=== PATIENT | male | born 1980 | race Caucasian/White ===

== ENCOUNTER 2017-01-03 13:29 | Day surgery (SDC) | payer OTHER ==
[~2017-01-03] VITALS: Ht 180.3 cm; Wt 93.0 kg
[~2017-01-03 13:29] MED LIST: ONETAB4 PO
[2017-01-03] MEDS ORDERED: ceFAZolin 2 GM/D5W 50 ML IV BAG (J0690) As Ordered ONE (13:53)
[2017-01-03] MEDS ORDERED: LR 1,000 ML IV ONE (14:00)
[2017-01-03] MEDS ORDERED: MIDAZOLAM INJ 2 MG/2 ML VIAL (J2250) As Ordered ONE (14:10)
[2017-01-03] MEDS ORDERED: fentaNYL 100 MCG/2 ML INJECTION (J3010) As Ordered ONE (14:10)
[2017-01-03] MEDS ORDERED: BUPIVACAINE/EPIN 0.25% 30 ML VIAL As Ordered ONE (14:16)
[2017-01-03] MEDS ORDERED: HYDROmorphone HCL 2 MG/ML 1ML VIAL (J1170) As Ordered ONE (15:12)
[2017-01-03] MEDS ORDERED: dexameTHASONE 4 MG/ML 1ML VIAL (J1100) As Ordered ONE (15:16)
[2017-01-03] MEDS ORDERED: ONDANSETRON 4MG/2ML VIAL (J2405) As Ordered ONE (15:16)
[2017-01-03] MEDS ORDERED: KETOROLAC 60 MG/2 ML VIAL (J1885) As Ordered ONE (15:16)
[2017-01-03] MEDS ORDERED: GLYCOPYRROLATE INJ 0.2 MG/ML 2 ML VIAL As Ordered ONE (15:28)
[2017-01-03] MEDS ORDERED: NEOSTIGMINE 1MG/ML 5 ML SYRINGE (J2710) As Ordered ONE (15:28)
[2017-01-03] MEDS ORDERED: fentaNYL 100 MCG/2 ML INJECTION (J3010) IV PRN (16:00)
[2017-01-03] MEDS ORDERED: LR 1,000 ML IV SCH (16:00)
[2017-01-03] MEDS ORDERED: ONDANSETRON 4MG/2ML VIAL (J2405) IV PRN (16:00)
[2017-01-03] MEDS ORDERED: PERCOCET 5MG/325MG TAB PO PRN (16:00)
[2017-01-03] MEDS ORDERED: NORCO, ANEXSIA 5/325MG TABLET (HYDROcodone/ACETAMINOPHEN) PO PRN (16:00)
[2017-01-03 17:10] VITALS: BP 123/52
--- NOTE | 2017-01-03 20:04 | RO ---
DATE OF PROCEDURE: 01/03/2017 PREOPERATIVE DIAGNOSIS: Biliary dyskinesia. POSTOPERATIVE DIAGNOSIS: Biliary dyskinesia. PROCEDURE: Laparoscopic cholecystectomy. SURGEON: Dr. Hinojosa HEALTHCARE REPRESENTATIVE: None. ANESTHESIA: General. ESTIMATED BLOOD LOSS: 5. COMPLICATIONS: None. INDICATIONS FOR PROCEDURE: The patient is a 36-year-old male who presents with persistent right upper quadrant abdominal pains that occurs mostly after eating meals. His symptoms improved after going on Prilosec slightly but were still not completely improved and when he stopped the Prilosec his symptoms all returned. He also slightly abnormal hida scan with a low ejection fraction. Recommendation at this time to proceed with laparoscopic possible open cholecystectomy. Risks of the procedure not limited but including bleeding, infection, hernia formation , damage surrounding structures, need for further surgery was discussed in detail with the patient. Informed consent was obtained and procedure was planned. PROCEDURE: The patient brought back to the operating room two after sufficient sedation and the abdomen was sterilely prepped, draped. Next a time out was done to confirm proper patient and proper procedure. Following that a stab incision made in left lower quadrant, taylor point. Veress needle was inserted and the abdomen was insufflated to 50 mmHg. Next, a 5 mm Optiview port was used to gain access the abdomen infraumbilically. Once the abdomen is entered, Veress needle site was examined. There was no signs of any injury. 11 mm port was placed subxiphoid. Two 5 mm ports in the right upper quadrant as the gallbladder grasped, elevated up towards right shoulder. Cystic duct and cystic artery were both then clearly mobilized and identified using combination of blunt and sharp dissection. Once they are both clearly identified they are both doubly clipped and then cut. Gallbladder was then removed from the gallbladder fossa using electrocautery and then brought out through the subxiphoid port site. Right upper quadrant was examined to confirm hemostasis. The abdomen was then desufflated. Skin incisions were closed with #4-0 Vicryl subcu sutures. The abdomen cleaned and dried. Steri-Strips, 4x4, and tape were applied thus ending procedure. LUBNA
== END 2017-01-03 17:30 | disposition home or self-care (01) ==
LOC: M SDC 13:29
PROVIDERS: ATTEND Surgery
DX: K82.8 Other specified diseases of gallbladder (principal); K21.9 Gastro-esophageal reflux disease without esophagitis; M54.5 Low back pain; Z87.891 Personal history of nicotine dependence; Z79.899 Other long term (current) drug therapy
CPT/HCPCS: 47562; 88304; J0690; J1100; J1170; J1885; J2250; J2405; J2710; J3010

== ENCOUNTER → 2017-07-07 | Outpatient (CLI) | payer OTHER | LOC: M RAD 14:26 | DX: J32.2 Chronic ethmoidal sinusitis (principal) ==

== ENCOUNTER 2017-08-07 14:18 | Emergency (ER) | payer OTHER | END 2017-08-07 15:20 | disposition home or self-care (01) | LOC: M ED 14:18 | DX: B37.0 Candidal stomatitis (principal); Z98.890 Other specified postprocedural states | CPT/HCPCS: 99282 ==